=== PATIENT | male | born 1930 | race Caucasian/White ===

== ENCOUNTER 2017-11-18 10:15 | Observation (INO) | payer MEDICARE, BC ==
--- NOTE | 2017-11-18 10:49 | EDM.PDOC ---
ED HPI GENERAL MEDICAL PROBLEM - General Chief Complaint: Cardiovascular Problem Stated Complaint: FALL Time Seen by Provider: 11/18/17 10:40 Source of Information: Reports: Patient, Family, RN History Limitations: Reports: No Limitations - History of Present Illness INITIAL COMMENTS - FREE TEXT/NARRATIVE: 87 yr male presents with some shortness of breath and some confusion. Pt presents via ambulance and had a fall on Tuesday and was seen with CT of chest and chest x-ray and EKG completed with labs. Pt states no real injury with the fall. States he has some left shoulder pain. He does have a pacemaker in and has had this replaced in past. States he [place] in [place] and comes up here to [facility]. Pt is alert and no acute distress. He does have a hx of hypothyroid, hypertension, and pacer for heart. States he did have a check-up about 2 weeks ago and everything was ok. States he has noted some puffiness to his pacemaker and was placed on an antibiotic for this. Pt has some swelling to left upper back and some bruising noted to left anterior chest. States no change in BM and was plummer colored. States no chest pain and no back pain, no swelling to ankles. - Related Data Allergies Allergy/AdvReac Type Severity Reaction Status Date / Time No Known Allergies Allergy Verified 11/18/17 12:44 Home Meds: Home Meds Allopurinol [Zyloprim] 300 mg PO DAILY 11/18/17 [History] Furosemide 20 mg PO DAILY 11/18/17 [History] Levothyroxine 25 mcg PO DAILY 11/18/17 [History] Losartan [Cozaar] 50 mg PO BID 11/18/17 [History] Metoprolol Tartrate 100 mg PO DAILY 11/18/17 [History] Pravastatin [Pravachol] 40 mg PO BEDTIME 11/18/17 [History] Warfarin Sodium [Jantoven] 5 mg PO DAILY 11/18/17 [History] traMADol [Ultram] 50 mg PO Q8HR PRN 11/18/17 [History] ED ROS GENERAL - Review of Systems Review Of Systems: See Below Constitutional: Reports: No Symptoms, Weakness HEENT: Reports: No Symptoms, Glasses Respiratory: Reports: No Symptoms Cardiovascular: Reports: No Symptoms Endocrine: Reports: No Symptoms GI/Abdominal: Reports: No Symptoms Musculoskeletal: Reports: Shoulder Pain Skin: Reports: Bruising (right anterior chest) Neurological: Reports: Confusion, Dizziness, Weakness Psychiatric: Reports: No Symptoms Hematologic/Lymphatic: Reports: Other (coumadin) ED EXAM, GENERAL - Physical Exam Exam: See Below Exam Limited By: No Limitations General Appearance: Alert, No Apparent Distress Nose: Normal Mucosa Throat/Mouth: Normal Voice, No Airway Compromise Head: Atraumatic, Normocephalic Neck: Normal Inspection, Supple Respiratory/Chest: No Respiratory Distress, Lungs Clear, Normal Breath Sounds Cardiovascular: Regular Rate, Rhythm (paced 70's), No Edema GI/Abdominal: Normal Bowel Sounds, Soft, Non-Tender (Male) Exam: Other (unable to void) Extremities: No Pedal Edema, Other (swelling and bruising to posterior left shoulder) Neurological: Alert, Oriented, Normal Cognition Psychiatric: Normal Affect, Normal Mood Skin Exam: Warm, Dry, Normal Color, Other (bruising to left side of abdomen and left lateral thoracic area and to right, posterior thoracic area.) Lymphatic: No Adenopathy Course - Vital Signs Last Recorded V/S: Last Vital Signs Temp 98.5 F 11/18/17 17:35 Pulse 69 11/18/17 17:35 Resp 18 11/18/17 17:35 BP 134/59 L 11/18/17 17:35 Pulse Ox 95 11/18/17 17:35 - Orders/Labs/Meds Orders: Active Orders 24 hr Category Date Time Status Abdomen Pelvis wo Cont [CT] Stat Exams 11/18/17 11:58 Taken Sodium Chloride 0.9% [Normal Saline] 500 ml Med 11/18/17 12:34 Active IV ASDIRECTED Transfuse Red Blood Cells [COMM] Stat Oth 11/18/17 11:52 Ordered Medication Orders Furosemide (Lasix) 20 mg PO DAILY JONATHAN Sodium Chloride (Normal Saline) 500 mls @ 30 mls/hr IV ASDIRECTED ONE Stop: 11/19/17 05:13 Last Admin: 11/18/17 12:00 Dose: 30 mls/hr Levothyroxine Sodium (Levothyroxine) 25 mcg PO DAILY@0700 JONATHAN Losartan Potassium (Cozaar) 50 mg PO BID JONATHAN Metoprolol Tartrate (Lopressor) 100 mg PO DAILY JONATHAN Tramadol HCl (Ultram) 50 mg PO Q8HR PRN PRN Reason: Pain Labs: Laboratory Tests 11/18/17 11/18/1711/18/18 Range/Units 11:00 11:00 11:40 WBC 10.4 (4.0-11.0) K/uL RBC 2.12 L (4.50-6.50) M/uL Hgb 6.7 L* (13.0-18.0) g/dL Hct 20.8 L (40.0-54.0) % MCV 98 H (76-96) fL MCH 31.6 (27.0-32.0) pg MCHC 32.2 (31.0-35.0) g/dL RDW 14.9 (11.0-16.0) % Plt Count 133 L (150-400) K/uL MPV 8.7 (6.0-10.0) fL Neut % (Auto) 70.8 H (45.0-70.0) % Lymph % (Auto) 19.7 L (20.0-40.0) % [place] % (Auto) 8.6 (3.0-10.0) % Eos % (Auto) 0.7 L (1.0-5.0) % Baso % (Auto) 0.2 (0.0-0.5) % Neut # (Auto) 7.38 (2.00-7.50) K/uL Lymph # (Auto) 2.05 (1.50-4.00) K/uL [place] # (Auto) 0.90 H (0.20-0.80) K/uL Eos # (Auto) 0.07 (0.04-0.40) K/uL Baso # (Auto) 0.02 (0.02-0.10) K/uL PT (9.0-11.5) sec INR (1.0-3.5) APTT (27.0-35.0) SECONDS Sodium 142 (136-145) mmol/L Potassium 4.2 (3.5-5.1) mmol/L Chloride 105 (98-107) mmol/L Carbon Dioxide 26.0 (21.0-32.0) mmol/L Anion Gap 15.2 H (5.0-15.0) mmol/L BUN 36 H (8-26) mg/dL Creatinine 1.63 H (0.70-1.30) mg/dL Est Cr Clr Drug Dosing TNP Estimated GFR (MDRD) 40 L (>60) MLS/MIN BUN/Creatinine Ratio 22.1 (6-25) Glucose 158 H (74-100) mg/dL Calcium 8.5 (8.5-10.1) mg/dL Troponin I (0.000-0.060) ng/mL TSH, Ultra Sensitive 3.981 H (0.358-3.740) uIU/mL Blood Type O POSITIVE Gel Antibody Screen Negative Crossmatch See Detail 11/18/17 11/18/17 Range/Units 11:51 11:51 WBC (4.0-11.0) K/uL RBC (4.50-6.50) M/uL Hgb (13.0-18.0) g/dL Hct (40.0-54.0) % MCV (76-96) fL MCH (27.0-32.0) pg MCHC (31.0-35.0) g/dL RDW (11.0-16.0) % Plt Count (150-400) K/uL MPV (6.0-10.0) fL Neut % (Auto) (45.0-70.0) % Lymph % (Auto) (20.0-40.0) % [place] % (Auto) (3.0-10.0) % Eos % (Auto) (1.0-5.0) % Baso % (Auto) (0.0-0.5) % Neut # (Auto) (2.00-7.50) K/uL Lymph # (Auto) (1.50-4.00) K/uL [place] # (Auto) (0.20-0.80) K/uL Eos # (Auto) (0.04-0.40) K/uL Baso # (Auto) (0.02-0.10) K/uL PT 36.9 H (9.0-11.5) sec INR 3.8 H (1.0-3.5) APTT 40.3 H (27.0-35.0) SECONDS Sodium (136-145) mmol/L Potassium (3.5-5.1) mmol/L Chloride (98-107) mmol/L Carbon Dioxide (21.0-32.0) mmol/L Anion Gap (5.0-15.0) mmol/L BUN (8-26) mg/dL Creatinine (0.70-1.30) mg/dL Est Cr Clr Drug Dosing Estimated GFR (MDRD) (>60) MLS/MIN BUN/Creatinine Ratio (6-25) Glucose (74-100) mg/dL Calcium (8.5-10.1) mg/dL Troponin I 0.019 (0.000-0.060) ng/mL TSH, Ultra Sensitive (0.358-3.740) uIU/mL Blood Type Gel Antibody Screen Crossmatch Meds: Medications Generic Name Dose Route Start Last Admin Trade Name Freq PRN Reason Stop Dose Admin Furosemide 20 mg 11/19/17 08:00 Lasix PO DAILY [facility] Sodium Chloride 500 mls @ 30 mls/hr 11/18/17 12:34 11/18/17 12:00 Normal Saline IV 11/19/17 05:13 30 mls/hr ASDIRECTED ONE Administration Levothyroxine Sodium 25 mcg 11/18/17 14:45 Levothyroxine PO DAILY@0700 [facility] Losartan Potassium 50 mg 11/18/17 20:00 Cozaar PO BID JONATHAN Metoprolol Tartrate 100 mg 11/18/17 14:45 Lopressor PO DAILY JONATHAN Tramadol HCl 50 mg 11/18/17 13:13 Ultram PO Q8HR PRN Pain Discontinued Medications Generic Name Dose Route Start Last Admin Trade Name Freq PRN Reason Stop Dose Admin Furosemide 20 mg 11/18/17 13:15 11/18/17 13:56 Lasix PO 20 mg DAILY JONATHAN Administration Levothyroxine Sodium 25 mcg 11/18/17 13:15 11/18/17 13:54 Levothyroxine PO 25 mcg DAILY JONATHAN Administration Metoprolol Tartrate 100 mg 11/18/17 13:15 11/18/17 13:54 Lopressor PO 100 mg DAILY JONATHAN Administration Pravastatin Sodium 40 mg 11/18/17 20:00 Pravachol PO BEDTIME JONATHAN - Re-Assessments/Exams Free Text/Narrative Re-Assessment/Exam: 11/18/17 13:[address] Marcial. Recommends having CT of abdomen to rule out retroperitoneal bleed. CT of abdomen is complete and no retroperitoneal bleed noted. Will transfer to observation for anemia and transfuse with 2 units PRBCs. Will monitor stools for blood. Waiting for urine sample. PT is alert and no acute distress. Blood, 0+ started. 11/18/17 17:48 Pt states feeling better and blood transfusion is in progress. He has a meal tray and is watching TV. No acute distress. Departure - Departure Time of Disposition: 13:15 Disposition: Refer to Observation Condition: Good Clinical Impression: Anemia - Discharge Information - My Orders Last 24 Hours: My Active Orders 11/18/17 12:34 Sodium Chloride 0.9% [Normal Saline] 500 ml IV ASDIRECTED - Assessment/Plan Last 24 Hours: My Active Orders 11/18/17 12:34 Sodium Chloride 0.9% [Normal Saline] 500 ml IV ASDIRECTED
[2017-11-18] MEDS ORDERED: Sodium Chloride 0.9% 500 ML IV ONE (12:34)
[2017-11-18] MEDS ORDERED: traMADol 50 MG Tab ** OWN MED PO PRN (13:13)
[2017-11-18] MEDS ORDERED: Levothyroxine 25 MCG Tab PO SCH (13:15)
[2017-11-18] MEDS ORDERED: Furosemide 20 MG Tab PO SCH (13:15)
[2017-11-18] MEDS ORDERED: Metoprolol Tartrate 100 MG Tab PO SCH (13:15)
--- NOTE | 2017-11-18 17:18 | CR ---
DATE OF SERVICE: 11/18/17 CLINICAL DATA: left shoulder pain LEFT SHOULDER: There is diffuse osteopenia. 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 No acute fracture or dislocation. No focal lytic or blastic bone lesions. [id number] [facility]
[2017-11-18] MEDS: Levothyroxine 25 MCG Tab **OWN MED PO SCH (19:09)
[2017-11-18] MEDS: METOPROLOL TARTRATE 100 MG PO SCH (19:11)
[2017-11-18] MEDS: Losartan 50 MG Tab **OWN MED PO SCH (19:51)
[2017-11-18] MEDS ORDERED: Pravastatin 40 MG Tab PO SCH (20:00)
[2017-11-18] MEDS ORDERED: PRAVASTATIN 40 MG PO SCH (20:00)
[2017-11-18] MEDS ORDERED: Losartan 50 MG Tab PO SCH (20:00)
[2017-11-19] MEDS: Levothyroxine 25 MCG Tab **OWN MED PO SCH (06:28)
[2017-11-19] MEDS ORDERED: Furosemide 20 MG Tab **OWN MED PO SCH (08:00)
[2017-11-19] MEDS: METOPROLOL TARTRATE 100 MG PO SCH (08:00)
[2017-11-19] MEDS: Losartan 50 MG Tab **OWN MED PO SCH (08:01)
--- NOTE | 2017-11-19 13:06 | PCM.DCSUM1 ---
Discharge Summary - Hospital Course Free Text/Narrative:: Pt was admitted with symptomatic anemia from fall and large left upper back hematoma. Also his INR was 3.8, which has been over therapeutic forAfib treatment, which could have increased the risk of fall. His CMP was stable and also I did get Ct abdomen to rule out spontaneous bleed or retro-peritoneal bleed asso with coumadin, which was negative. Pt did receive 2 units of PRBC over night. His morning Hemoglobin was 7.9 and his INR was 3.9, and also there was spreading left sided skin bruising over the left mid-back and left loin. Pt was empirically given Vit K 10mg S/c to reverse anticoagulation. also repeat CBC was ordered for afternoon. His repeat hemoglobin is 8.8. he has been feeling good. At this point pt and family was reassured that his hemoglobin is stable and also he not actively bleeding. He has remained asymptomatic from anemia. Feels energetic and no SOB or dizziness. Pt is planned for discharge today. Brief History: Pt was brought in by EMS yesterday wioth dizziness and weakness, and on workup he was anemic with hemoglobin of 6.7 with a large left upper back hematoma. kindly see H&P for details. - Discharge Data Discharge Date: 11/19/17 Discharge Disposition: Home, Self-Care 01 Condition: Good - Patient Instructions Diet: Heart Healthy Diet Fluid Restriction: 1500 mL Activity: As Tolerated Driving: May Drive Today Showering/Bathing: May Shower Other/Special Instructions: Okay to discharge home today. Okay to start Range of motion of left shoulder. Intermittent heat 2-3 times daily to the back heamtoma. The back bruising will spread and get worse before resolving. Might take 5-6 weeks. the hematoma might take uypto 3 months. Hold of coumadin for now. Return to hosptial for INR and PT at 10 Am tommorrow. - Discharge Plan Home Medications: Home Meds Allopurinol [Zyloprim] 300 mg PO DAILY 11/18/17 [History] Furosemide 20 mg PO DAILY 11/18/17 [History] Levothyroxine 25 mcg PO DAILY 11/18/17 [History] Losartan [Cozaar] 50 mg PO BID 11/18/17 [History] Metoprolol Tartrate 100 mg PO DAILY 11/18/17 [History] Pravastatin [Pravachol] 40 mg PO BEDTIME 11/18/17 [History] traMADol [Ultram] 50 mg PO Q8HR PRN 11/18/17 [History] Pravastatin [Pravachol] 40 mg PO MoWeFr@2000 tablet 11/19/17 [Rx] Forms: ED Department Discharge - Discharge Summary/Plan Comment DC Time >30 min.: Yes - General Info Functional Status: Reports: Pain Controlled, Tolerating Diet, Ambulating, Urinating - Review of Systems General: Denies: Fever, Weakness, Fatigue, Malaise HEENT: Denies: Sinus Congestion, Sore Throat Pulmonary: Denies: Shortness of Breath, Sputum, Hemoptysis Cardiovascular: Denies: Chest Pain, Palpitations Gastrointestinal: Denies: Abdominal Pain, Diarrhea, Nausea, Vomiting Genitourinary: Denies: Dysuria, Frequency Musculoskeletal: Reports: Shoulder Pain. Denies: Arm Pain, Joint Pain, Joint Swelling Skin: Reports: Bruising, Rash. Denies: Jaundice, Pruritis Neurological: Denies: Confusion, Dizziness, Headache, Numbness - Patient Data Vitals - Most Recent: Last Vital Signs Temp 96.9 F 11/19/17 11:57 Pulse 79 11/19/17 11:57 Resp 18 11/19/17 11:57 BP 128/78 11/19/17 11:57 Pulse Ox 100 11/19/17 11:57 Weight - Most Recent: 83.461 kg I&O - Last 24 hours: Intake & Output 11/18/17 11/19/17 11/19/17 22:59 06:59 14:59 Intake Total 980 Balance 980 Lab Results - Last 24 hrs: Laboratory Results - last 24 hr 11/18/17 11/18/17 11/19/17 Range/Units 11:40 16:30 07:30 WBC 7.6 D (4.0-11.0) K/uL RBC 2.47 L (4.50-6.50) M/uL Hgb 7.9 L (13.0-18.0) g/dL Hct 24.1 L (40.0-54.0) % MCV 98 H (76-96) fL MCH 32.0 (27.0-32.0) pg MCHC 32.8 (31.0-35.0) g/dL RDW 15.1 (11.0-16.0) % Plt Count 108 L (150-400) K/uL MPV 8.7 (6.0-10.0) fL Neut % (Auto) 66.2 (45.0-70.0) % Lymph % (Auto) 18.5 L (20.0-40.0) % [place] % (Auto) 12.4 H (3.0-10.0) % Eos % (Auto) 2.6 (1.0-5.0) % Baso % (Auto) 0.3 (0.0-0.5) % Neut # (Auto) 5.06 (2.00-7.50) K/uL Lymph # (Auto) 1.41 L (1.50-4.00) K/uL [place] # (Auto) 0.95 H (0.20-0.80) K/uL Eos # (Auto) 0.20 (0.04-0.40) K/uL Baso # (Auto) 0.02 (0.02-0.10) K/uL Whole Blood INR (1.0-3.5) Urine Color Yellow Urine Appearance Clear (CLEAR) Urine pH 5.5 (5.0-8.0) Ur Specific [place] 1.020 (1.003-1.030) Urine Protein Negative (NEGATIVE) mg/dL Urine Glucose (UA) Negative (NEGATIVE) mg/dL Urine Ketones Negative (NEGATIVE) mg/dL Urine Occult Blood Negative (NEGATIVE) Urine Nitrite Negative (NEGATIVE) Urine Bilirubin Negative (NEGATIVE) Urine Urobilinogen 0.2 (0.2-1.0) E.U./dL Ur Leukocyte Esterase Negative (NEGATIVE) Urine RBC Not seen /HPF Urine WBC 0-5 H /HPF Ur Squamous Epith Cells Few /HPF Blood Type O POSITIVE Gel Antibody Screen Negative Crossmatch See Detail 11/19/17 11/19/17 Range/Units 09:15 12:00 WBC 10.2 D (4.0-11.0) K/uL RBC 2.79 L (4.50-6.50) M/uL Hgb 8.8 L (13.0-18.0) g/dL Hct 27.0 L (40.0-54.0) % MCV 97 H (76-96) fL MCH 31.5 (27.0-32.0) pg MCHC 32.6 (31.0-35.0) g/dL RDW 15.2 (11.0-16.0) % Plt Count 130 L D (150-400) K/uL MPV 8.7 (6.0-10.0) fL Neut % (Auto) 68.5 (45.0-70.0) % Lymph % (Auto) 18.9 L (20.0-40.0) % [place] % (Auto) 10.2 H (3.0-10.0) % Eos % (Auto) 2.3 (1.0-5.0) % Baso % (Auto) 0.1 (0.0-0.5) % Neut # (Auto) 7.01 (2.00-7.50) K/uL Lymph # (Auto) 1.93 (1.50-4.00) K/uL [place] # (Auto) 1.04 H (0.20-0.80) K/uL Eos # (Auto) 0.23 (0.04-0.40) K/uL Baso # (Auto) 0.01 L (0.02-0.10) K/uL Whole Blood INR 3.9 H (1.0-3.5) Urine Color Urine Appearance (CLEAR) Urine pH (5.0-8.0) Ur Specific [place] (1.003-1.030) Urine Protein (NEGATIVE) mg/dL Urine Glucose (UA) (NEGATIVE) mg/dL Urine Ketones (NEGATIVE) mg/dL Urine Occult Blood (NEGATIVE) Urine Nitrite (NEGATIVE) Urine Bilirubin (NEGATIVE) Urine Urobilinogen (0.2-1.0) E.U./dL Ur Leukocyte Esterase (NEGATIVE) Urine RBC /HPF Urine WBC /HPF Ur Squamous Epith Cells /HPF Blood Type Gel Antibody Screen Crossmatch Med Orders - Current: Current Medications Furosemide (Lasix) 20 mg PO DAILY [facility] Last Admin: 11/19/17 08:00 Dose: 20 mg Levothyroxine Sodium (Levothyroxine) 25 mcg PO DAILY@0700 [facility] Last Admin: 11/19/17 06:28 Dose: 25 mcg Losartan Potassium (Cozaar) 50 mg PO BID [facility] Last Admin: 11/19/17 08:01 Dose: 50 mg Metoprolol Tartrate (Lopressor) 100 mg PO DAILY [facility] Last Admin: 11/19/17 08:00 Dose: 100 mg Pravastatin Sodium (Pravachol) 40 mg PO MoWeFr@2000 [facility] Last Admin: 11/18/17 19:52 Dose: 40 mg Tramadol HCl (Ultram) 50 mg PO Q8HR PRN PRN Reason: Pain Discontinued Medications Furosemide (Lasix) 20 mg PO DAILY [facility] Last Admin: 11/18/17 13:56 Dose: 20 mg Sodium Chloride (Normal Saline) 500 mls @ 30 mls/hr IV ASDIRECTED ONE Stop: 11/19/17 05:13 Last Admin: 11/18/17 12:00 Dose: 30 mls/hr Levothyroxine Sodium (Levothyroxine) 25 mcg PO DAILY [facility] Last Admin: 11/18/17 13:54 Dose: 25 mcg Metoprolol Tartrate (Lopressor) 100 mg PO DAILY [facility] Last Admin: 11/18/17 13:54 Dose: 100 mg Phytonadione (Aquamephyton) 10 mg SUBCUT ONETIME ONE Stop: 11/19/17 08:38 Last Admin: 11/19/17 09:11 Dose: 10 mg Pravastatin Sodium (Pravachol) 40 mg PO BEDTIME [facility] - Exam General: Reports: Alert, Oriented HEENT: Reports: Pupils Equal, Pupils Reactive, EOMI, Mucous Membr. Moist/[place] Neck: Reports: Supple Lungs: Reports: Clear to Auscultation, Normal Respiratory Effort Cardiovascular: Reports: Regular Rate, Regular Rhythm GI/Abdominal Exam: Normal Bowel Sounds, Soft, Non-Tender, No Organomegaly, No Distention, No Abnormal Bruit, No Mass, Pelvis Stable Extremities: Normal Inspection, Normal Range of Motion, Non-Tender, No Pedal Edema, Normal Capillary Refill Skin: Reports: Warm, Intact, Other (Back: there is a large muscle hematoma over the left upper back. there is skin brusing over the left side of the mid back and loin, which is blackish blue in color. Non tender. Normal ROm of the left shoulder.) Neurological: Reports: No New Focal Deficit
--- NOTE | 2017-11-21 04:13 | CT ---
UNENHANCED ABDOMEN AND PELVIC CT, 11/18/17 Multislice acquisition through the abdomen and pelvis without IV or oral contrast was performed. No priors. There are emphysematous changes in both lower lungs with mild atelectatic changes in both lung bases. The heart is enlarged. There are cardiac pacer wires in place. The liver is normal size. There is a 2.9 cm sharply transcribed oval-shaped fluid density lesion within the left lobe of the liver consistent in appearance with a benign hepatic cyst. No other focal hepatic lesions. The gallbladder contains multiple calcified gallstones. No pericholecystic fluid. There is mural thickening within the fundus and body of the stomach. This is probably related to nondistention. Gastritis or an infiltrating process should be considered. There is also mural thickening within the distal esophagus and esophagitis should be considered. The spleen appears normal. The pancreas appears normal. The right and left adrenals appear normal. There is atrophy of both kidneys. There are sharply transcribed fluid density lesions in both kidneys consistent with bilateral renal cysts. There hyperdense lesions in both kidneys consistent with hyperdense cysts. No nephrocalcinosis or nephrolithiasis. No hydronephrosis or hydroureter. The bladder is fluid filled and appears normal. The appendix is not clearly seen. No evidence of appendicitis. There is moderate amount of gas and stool present throughout the colon. There is diverticulosis of the descending and sigmoid colon. There is minimal pericolonic fat stranding adjacent to the distal descending and proximal sigmoid colon suggesting the possibility of mild to early diverticulitis. No evidence of diverticular abscess. No free air. No free fluid. No dilated loops of bowel. No adenopathy. No aortic aneurysm. There is a small umbilical hernia containing fat. There is a left inguinal hernia containing fat. There is subcutaneous fat stranding posteriorly in the left flank region. Etiology uncertain. No focal fluid collections. I do not see any other significant findings. IMPRESSION: Multiple abnormalities as discussed above. [id number] [facility]
== END 2017-11-19 13:30 | disposition home or self-care (01) ==
LOC: LB.ED 10:15 → LB.MS 13:06 → UNDOADMOB 13:13 → LB.MS 13:13
PROVIDERS: ADMIT Nurse Practitioner Family; ATTEND Nurse Practitioner Family
DX: D50.0 Iron deficiency anemia secondary to blood loss (chronic) (principal); R79.1 Abnormal coagulation profile; Z79.899 Other long term (current) drug therapy; Z79.01 Long term (current) use of anticoagulants
CPT/HCPCS: 36415; 36430; 73030-LT; 74176; 80048; 81001; 84443; 84484; 85025; 85610; 85730; 86850; 86900; 86901; 86920; 86922; 96372; 99217; 99219; 99285-25; A0425; A0429; A9270-GY; G0378; J3430; J7040; P9016